=== PATIENT | male | born 1955 | race Caucasian/White ===

== ENCOUNTER 2018-01-01 14:35 | Inpatient (IN) | payer MEDICAID ==
[~2018-01-01] VITALS: Ht 177.8 cm; Wt 143.8 kg
[2018-01-01] MEDS ORDERED: SODIUM CHLORIDE 0.9% 1,000ML IVBOLUS ONE (16:00)
[2018-01-01] MEDS ORDERED: SODIUM CHLORIDE FLUSH 10ML SYR IVF ONE (16:00)
[2018-01-01] MEDS ORDERED: MORPHINE SULFATE 4 MG/ML, 1ML ONE ×2 (16:31→17:41)
[2018-01-01] MEDS: MORPHINE SULFATE 4 MG/ML, 1ML IVPush PRN ×2 (16:34→17:43)
[2018-01-01 16:37] LABS: BASOPHILS # (AUTO) 0.04 x10^3/uL (0-0.1); BASOPHILS % (AUTO) 0 % (0-1); EOSINOPHILS # (AUTO) 0.01 x10^3/uL (0-0.4); EOSINOPHILS % (AUTO) 0 % (1-7); LYMPHOCYTES # (AUTO) 1.29 x10^3/uL (1-3.4); LYMPHOCYTES % (AUTO) 11 % (22-44); MD NO; MEAN CORPUSCULAR HEMOGLOBIN 33.7 pg (27.5-34.5); MEAN CORPUSCULAR VOLUME 99.3 fL (81-97); MEAN PLATELET VOLUME 8.2 fL (7.4-10.4); MONOCYTES # (AUTO) 0.61 x10^3/uL (0.2-0.8); MONOCYTES % (AUTO) 5 % (2-9); NEUTROPHILS # (AUTO) 9.83 x10^3/uL (1.8-6.8); NEUTROPHILS % (AUTO) 84 % (42-75); PLATELET COUNT 210 x10^3/uL (130-400); RED CELL DISTRIBUTION WIDTH 12.7 % (9.4-14.8)
[2018-01-01] MEDS ORDERED: HYDR-3237 PO (16:42)
[2018-01-01] MEDS ORDERED: CARI350T14 PO (16:42)
[2018-01-01] MEDS ORDERED: NABU500T PO (16:42)
[2018-01-01 16:49] LABS: ALANINE AMINOTRANSFERASE 40 U/L (12-78); ALBUMIN 3.8 g/dL (3.4-5.0); ANION GAP 8 mmol/L (5-15); CALCIUM 8.4 mg/dL (8.5-10.1); CHLORIDE 106 mmol/L (98-107); CREATININE 0.93 mg/dL (0.7-1.3)
[2018-01-01 16:51] LABS: ALKALINE PHOSPHATASE 60 U/L (45-117); BILIRUBIN,TOTAL 0.6 mg/dL (0.2-1.0); TOTAL PROTEIN 7.4 g/dL (6.4-8.2)
[2018-01-01 16:52] LABS: MICROSCOPIC AUTO
[2018-01-01 16:57] LABS: CULTURE INDICATED? YES
[2018-01-01] MEDS ORDERED: OMNIPAQUE 350 MG/ML, 100ML BOTTLE ONE (17:28)
[2018-01-01] MEDS ORDERED: EPINEPHRINE 1 MG/ML, 1ML ONE (18:23)
[2018-01-01] MEDS ORDERED: BUPIVACAINE/PF 0.25% ONE (18:23)
[2018-01-01] MEDS ORDERED: MIDAZOLAM 1 MG/ML, 2ML ONE (18:27)
[2018-01-01] MEDS ORDERED: FENTANYL PF 250 MCG/5ML ONE (18:27)
[2018-01-01] MEDS ORDERED: CEFAZOLIN 1,000 MG ONE (18:42)
[2018-01-01] MEDS ORDERED: SUCCINYLCHOLINE 20 MG/ML, 10ML ONE (18:42)
[2018-01-01] MEDS ORDERED: ROCURONIUM 10 MG/ML,10ML ONE (18:42)
[2018-01-01] MEDS ORDERED: PROPOFOL 10 MG/ML, 20ML ONE (18:42)
[2018-01-01] MEDS ORDERED: ONDANSETRON 2MG/ML, 2ML ONE (18:42)
[2018-01-01] MEDS ORDERED: DEXAMETHASONE 4 MG/ML, 1ML ONE (18:42)
[2018-01-01] MEDS ORDERED: LORazepam 2 MG/ML, 1ML IVPush PRN (19:00)
[2018-01-01] MEDS ORDERED: ACETAMINOPHEN 325 MG TABLET PO PRN (19:00)
[2018-01-01] MEDS ORDERED: HYDROmorphone 1 MG/ML, 1ML IV PRN (19:00)
[2018-01-01] MEDS ORDERED: hydrALAzine 20 MG/ML, 1ML IV PRN (19:00)
[2018-01-01] MEDS ORDERED: ALBUTEROL SULFATE 2.5 MG/3 ML NPPB PRN (19:00)
[2018-01-01] MEDS ORDERED: OXYcodone 5 MG/5 ML ORAL.SOL UDC PO PRN (19:00)
[2018-01-01] MEDS ORDERED: LABETALOL 5MG/ML, 20ML IV PRN (19:00)
[2018-01-01] MEDS ORDERED: PROMETHAZINE 25 MG/ML, 1ML IV PRN (19:00)
[2018-01-01] MEDS ORDERED: BUPIVACAINE/PF 0.25% INFIL ONE (19:05)
[2018-01-01] MEDS ORDERED: EPINEPHRINE 1 MG/ML, 1ML INFIL ONE (19:06)
[2018-01-01] MEDS ORDERED: SUGAMMADEX 200 MG/2 ML IVPush ONE (19:30)
[2018-01-01] MEDS ORDERED: OXYcodone 5 MG/5 ML ORAL.SOL UDC ONE (19:34)
[2018-01-01] MEDS ORDERED: ACETAMINOPHEN 650 MG/20.3 ML UDC ONE (19:34)
[2018-01-01] MEDS ORDERED: FENTANYL PF 100 MCG/2ML ONE (19:34)
[2018-01-01] MEDS: FENTANYL PF 100 MCG/2ML IV PRN ×2 (19:42→19:52)
[2018-01-01 20:20] VITALS: BP 119/69
[2018-01-01] MEDS ORDERED: HYDROmorphone 2 MG/ML, 1ML IV PRN (22:30)
[2018-01-01] MEDS ORDERED: MORPHINE SULFATE 4 MG/ML, 1ML IVPush PRN (22:30)
[2018-01-01] MEDS ORDERED: ONDANSETRON 2MG/ML, 2ML IVPush PRN (22:30)
[2018-01-01] MEDS: LACTATED RINGERS 1,000 ML IV SCH (22:30)
[2018-01-01] MEDS: OXYcodone/APAP 5/325MG TABLET PO PRN (23:31)
[2018-01-02] MEDS: HYDROcodone/APAP 5/325 TABLET PO PRN ×2 (01:55→05:43)
[2018-01-02 02:30] VITALS: BP 120/75
[2018-01-02 07:13] VITALS: BP 130/80
[2018-01-02] MEDS: OXYcodone/APAP 5/325MG TABLET PO PRN (08:08)
[2018-01-02] MEDS: LACTATED RINGERS 1,000 ML IV SCH (08:14)
[2018-01-02] MEDS ORDERED: CEPH-368 PO (08:59)
[2018-01-02] MEDS ORDERED: OXYC-302 PO (08:59)
== END 2018-01-02 10:00 | disposition home or self-care (01) | DRG 339 ==
LOC: ED 17:59 → EDIP 18:19 → 4NOR 20:25 → DCLOUNGE 01-02 09:52
PROVIDERS: ADMIT Surgery; ATTEND Surgery
PROC: 0DTJ4ZZ Resection of Appendix, Percutaneous Endoscopic Approach (ICD-10-PCS; principal; 2018-01-01 18:30)
DX: K35.3 Acute appendicitis with localized peritonitis (principal); Z68.42 Body mass index [BMI] 45.0-49.9, adult; E66.01 Morbid (severe) obesity due to excess calories; G89.29 Other chronic pain
CPT/HCPCS: 36415; 74177; 80053; 81001; 83605; 83690; 85025; 87086; 88304; 94660; 96361; 96374; 96376; J0171; J0690; J1100; J1170; J2250; J2405; J2704; J3010; J3490; Q9967; J0330; J7030

== ENCOUNTER 2018-01-06 05:35 | Emergency (ER) | payer MEDICAID ==
[~2018-01-06] VITALS: Ht 177.8 cm; Wt 145.0 kg
[~2018-01-06 05:35] MED LIST: CARI350T14 PO; CEPH-368 PO; HYDR-3237 PO; NABU500T PO; OXYC-302 PO
[2018-01-06] MEDS ORDERED: HYDR-3237 PO (05:49)
[2018-01-06 06:26] LABS: BASOPHILS # (AUTO) 0.04 x10^3/uL (0-0.1); BASOPHILS % (AUTO) 0 % (0-1); EOSINOPHILS # (AUTO) 0.02 x10^3/uL (0-0.4); EOSINOPHILS % (AUTO) 0 % (1-7); LYMPHOCYTES # (AUTO) 0.89 x10^3/uL (1-3.4); LYMPHOCYTES % (AUTO) 10 % (22-44); MD NO; MEAN CORPUSCULAR HEMOGLOBIN 34.2 pg (27.5-34.5); MEAN CORPUSCULAR HGB CONC 34.5 g/dL (33.2-36.2); MEAN CORPUSCULAR VOLUME 98.9 fL (81-97); MONOCYTES # (AUTO) 0.81 x10^3/uL (0.2-0.8); MONOCYTES % (AUTO) 9 % (2-9); NEUTROPHILS # (AUTO) 7.54 x10^3/uL (1.8-6.8); NEUTROPHILS % (AUTO) 81 % (42-75); PLATELET COUNT 252 x10^3/uL (130-400); RED BLOOD COUNT 4.82 x10^6/uL (4.38-5.82); RED CELL DISTRIBUTION WIDTH 12.5 % (9.4-14.8)
[2018-01-06 06:29] LABS: INTERNATIONAL NORMALIZED RATIO 1.12 (0.93-1.1); PROTHROMBIN TIME 11.5 Seconds (9.6-11.5)
[2018-01-06] MEDS ORDERED: SODIUM CHLORIDE FLUSH 10ML SYR IVF ONE (06:30)
[2018-01-06 06:32] LABS: ALANINE AMINOTRANSFERASE 54 U/L (12-78); ANION GAP 10 mmol/L (5-15); CHLORIDE 101 mmol/L (98-107)
[2018-01-06 06:34] LABS: ALKALINE PHOSPHATASE 65 U/L (45-117); BILIRUBIN,TOTAL 0.9 mg/dL (0.2-1.0); TOTAL PROTEIN 7.3 g/dL (6.4-8.2)
[2018-01-06] MEDS ORDERED: OMNIPAQUE 350 MG/ML, 100ML BOTTLE ONE (07:23)
[2018-01-06] MEDS ORDERED: POTASSIUM CHLORIDE 20 MEQ TAB.ER.PRT PO ONE (08:00)
[2018-01-06 08:02] LABS: MICROSCOPIC NOT IND
[2018-01-06 08:16] LABS: CULTURE INDICATED? NO
[2018-01-06] MEDS ORDERED: POTASSIUM CHLORIDE 20 MEQ TAB.ER.PRT ONE (08:29)
[2018-01-06 08:41] VITALS: BP 148/81
== END 2018-01-06 11:29 | disposition home or self-care (01) ==
LOC: ED 05:52 → UNDOADMOB 09:46 → EDIP 09:46 → ED 11:29
DX: R10.31 Right lower quadrant pain (principal)
CPT/HCPCS: 36415; 74177; 80053; 81003; 83690; 85025; 85610; 85730; 99285; Q9967